=== PATIENT | female | born 1985 | race American Indian/Alaskan Native ===

== ENCOUNTER 2022-08-21 17:11 | Emergency (ER) | payer BC, SELFPAY ==
[2022-08-21 17:45] VITALS: BP 112/83; PULSE 74; RESP 18; TEMP 36.4; O2SAT 98; BMI 27.4
--- NOTE | 2022-08-21 18:03 | CRLHL7_ITS ---
For Patients: As a result of the Cures Act, medical imaging exams and procedure reports are released immediately into your electronic medical record. You may view this report before your referring provider. If you have questions, please contact your health care provider. Indication: Fall, inversion injury Technique: Three views left ankle Comparison: None Findings: Bones: Alignment is normal. No fractures or bone lesions. Joint spaces: Unremarkable. Soft tissues: Lateral soft tissue swelling. There is also fat stranding in the pre Achilles fat pad. Impression: No acute fracture. Lateral soft tissue swelling. There is also fat stranding in the pre Achilles fat pad which could be due to hemorrhage or Achilles tendon injury. Dictated by Vianey Andrade MD @ 08/21/2022 6:52:26 PM (Electronically Signed)
[2022-08-21] MEDS: IBUPROFEN 400 MG TABLET 800 MG PO (18:19)
--- NOTE | 2022-08-21 18:22 | ED_ITS ---
HPI - Extremity Injury (Lower) General Date Seen: 08/21/22 Chief Complaint: Extremity Pain/Injury, Lower Stated Complaint: Ankle Injury Time Seen by Provider: 08/21/22 17:53 Source: patient and family Mode of arrival: ambulatory Limitations: no limitations History of Present Illness HPI Narrative: Patient is a very nice 37-year-old female who was caring her ski down the stairs, went to the bottom, and then rolled her left ankle over, with an inversion-type injury, she is able to sort of bear weight on her toes, and hobble around, but there is a lot of swelling, and they have come in for an assessment, no other injury of her knee hip there is no fall associated with this, she denies no numbness tingling or weakness, no previous history of ankle injury. MD complaint: ankle injury Type of Injury: blunt Place: home Related Data Allergies Allergy/AdvReac Type Severity Reaction Status Date / Time codeine AdvReac Verified 08/21/22 17:45 Review of Systems Status of ROS: Reports: 6 or more systems reviewed and unremarkable except as noted in History and below PFSH PFSH Social History Smoking Status: Never smoker Do you use any of these nicotine containing products: None Second hand tobacco smoke exposure: Yes How often do you have a drink containing alcohol: 4 or more times a week How many standard drinks containing alcohol do you have on a typical day: 1 or 2 How often do you have six or more drinks on one occasion: Less than monthly AUDIT-C Alcohol total score: 5 Non-prescribed substance use: denies use service: No Exam Narrative: Exam Narrative: Patient is seen in room 4, she appears to be in no distress, her left ankle is swollen over the lateral part of it, she is tender over the anterior Tel fib area, with an obvious bogginess corresponding to a hematoma there also too, she is able to correct herself to neutral position, anterior drawer test is negative, normal dorsiflexion plantar flexion of foot, but forced inversion, do not show a firm endpoint. Distal tib-fib on compression is not reproduce any discomfort, normal DP and posterior tibial pulses, Navarrete test is negative. Const: Vital Signs, click to edit/add: Vital Signs - 24 hr 08/21/22 17:45 Temperature 97.6 F Pulse Rate [Pulse Oximeter] 74 Respiratory Rate 18 Blood Pressure [Ri ght Upper Arm] 112/83 Pulse Oximetry 98 Oxygen Delivery Me thod Room Air Documenting provider has reviewed patient's vital signs: yes Course Vital Signs Vital signs: Initial Vital Signs Temperature 97.6 F 08/21/22 17:45 Temperature Source Temporal Artery Scan 08/21/22 17:45 Pulse Rate 74 08/21/22 17:45 Pulse Rhythm 08/21/22 17:45 Respiratory Rate 18 08/21/22 17:45 Blood Pressure 112/83 08/21/22 17:45 Blood Pressure Mean 92 08/21/22 17:45 Blood Pressure Position Sitting 08/21/22 17:45 Pulse Oximetry 98 08/21/22 17:45 Oxygen Delivery Method 08/21/22 17:45 Vital Signs Temperature 97.6 F 08/21/22 17:45 Pulse Rate 74 08/21/22 17:45 Respiratory Rate 18 08/21/22 17:45 Blood Pressure 112/83 08/21/22 17:45 Pulse Oximetry 98 08/21/22 17:45 Oxygen Delivery Method 08/21/22 17:45 Temperature 97.6 F 08/21/22 17:45 Pulse Rate 74 08/21/22 17:45 Respiratory Rate 18 08/21/22 17:45 Blood Pressure 112/83 08/21/22 17:45 Pulse Oximetry 98 08/21/22 17:45 Oxygen Delivery Method 08/21/22 17:45 MDM - Extremity Injury (Lower) MDM Narrative Medical decision making narrative: We will go ahead and do an x-ray, give her some ibuprofen ice it, and further treatment. Differential Diagnosis Differential diagnosis: Likely ankle sprain and strain, acute internal derangement of knee, fracture of femur, fracture of hip and ankle fracture Imaging Data Ankle x-ray: Attestation: I have reviewed the pertinent imaging results. My impression: No evidence of acute Radiologist's impression: No acute fracture seen, Discharge Plan Discharge Clinical Impression: Ankle sprain and strain Patient Disposition: Home w/ Parent or Adult Condition: Improved Instructions: Ankle Sprain (ED), Crutch Instructions (ED), R.I.C.E. Treatment (ED) Additional Instructions: Home rest ibuprofen 600 mg p.o. t.i.d., recommend elevation above the level of your heart, no weight-bearing, follow-up with orthopedics mid to late next week, for recheck, but I suspect there may be a complete tear of the anterior talo fib ligament. X-rays were negative, Please call orthopedics Wednesday and Saver seen in the ER, we would like you seen in mid to late next week. Follow Up/Referrals: Michael Fabian MD [Staff Physician] - Davis Williamson MD [Staff Physician] - Tanya Watts MD [Primary Care Provider] - Stand Alone Forms: [employer] Info Instructions
[2022-08-21 19:59] VITALS: BP 112/83; PULSE 74; RESP 18; TEMP 36.4
== END 2022-08-21 20:00 | disposition home or self-care (01) ==
PROVIDERS: Emergency Provider Family Medicine; PCP Family Medicine
DX: S93.402A Sprain of unspecified ligament of left ankle, initial encounter (principal); X50.1XXA Overexertion from prolonged static or awkward postures, initial encounter
CPT/HCPCS: 73610; 99283; A9270